=== PATIENT | male | born 1985 | race Caucasian/White ===

== ENCOUNTER 2024-07-06 13:30 | Inpatient (IN) | payer OTHER, SELFPAY ==
[2024-07-06] VITALS (9 sets, daily range): BP systolic 107–137; BP diastolic 61–118; BMI 28.6; BMI 27.3
--- NOTE | 2024-07-06 10:38 | ED.GENMED ---
History of Present Illness
General
Chief Complaint: Heart Rate Problem
Time Seen by Provider: 07/06/24 10:23
History of Present Illness
History of Present Illness:
Patient is a 38-year-old male with history of hypertension substance use presenting to the emergency department in withdrawal. Patient states that 2 days ago he started fentanyl laced with cocaine. He uses about 1-2 bags a day. Last use 3 days
ago. Denies any alcohol use or other drugs. Has never injected. States that he is going through withdrawal. He has been on methadone before. Is not interested in Suboxone initiation at this time. He does note that he has been having a runny
nose lately. Denies any chest pain or breathing. He has nausea secondary to the withdrawal. No abdominal pain. No diarrhea.
Phy Exam
Physical Exam
Physical Exam:
GENERAL: Actively dry heaving, appears in mild distress
HEENT: normocephalic, extraocular movements intact, dry oral mucosa
NECK: normal inspection
RESPIRATORY: no respiratory distress, clear to auscultation bilaterally
CARDIOVASCULAR: Regular rhythm, tachycardic rate
ABDOMEN/: soft, non-distended, non-tender to palpation, no rebound or guarding
EXTREMITIES: non-tender, no edema/swelling
NEUROLOGIC: awake and alert, moves all extremities
SKIN: warm
Course
Orders/Labs/Results
Orders:
Orders
07/06/24 10:28
Ondansetron Injectable [Zofran] 4 mg IV NOW STA
07/06/24 10:29
Electrocardiogram (*1) Urgent
Reason for Study: Tachycardia
EKG- Treatment ONCE
HYDROmorphone [Dilaudid] 1 mg IV NOW STA
Lactated Ringers [Lr] 1,000 ml IV BOLUS
Clinical Opioid Withdrawal Scale (COWS) .PRN
CR Chest - 2 Views Urgent
Comment:
Reason For Exam: cough
07/06/24 10:34
Acetaminophen 1000MG/100Ml [Ofirmev] 1,000 mg in 100 ml IV ONCE
Acetaminophen IV Indication:: ED Narcotic History-ONCE
07/06/24 10:36
Basic Metabolic Panel Urgent
COVID-19 Antigen Urgent
Source: Nasal Swab
Complete Blood Count/With Diff Urgent
Influenza A+B Rapid Molecular Urgent
JACQUIE Source: Nasal Swab
Specimen Description:
Ketorolac [Toradol] 15 mg IV NOW STA
07/06/24 10:47
Trimethobenzamide [Tigan] 200 mg IM NOW STA
07/06/24 11:37
HYDROmorphone [Dilaudid] 1 mg IV NOW STA
07/06/24 12:13
Urinalysis Reflex To Culture Urgent
Date Specimen was Collected: 07/06/24
Time Specimen was Collected: 12:14
Abnormal Lab Results
07/06/24
10:36
WBC 13.0 H 10^3/uL
(4.8-10.8)
Hgb 12.8 L g/dL
(13.0-18.0)
Hct 37.5 L %
(39.0-52.0)
MCV 77.5 L fL
(80.0-94.0)
MCH 26.4 L pg
(27.0-31.0)
Abs Immat Gran (auto) 0.1 H 10^3/uL
(0-0.05)
Absolute Neuts (auto) 11.1 H 10^3/uL
(1.4-6.5)
Absolute Lymphs (auto) 0.7 L 10^3/uL
(1.2-3.4)
Absolute Monos (auto) 1.1 H 10^3/uL
(0.1-0.6)
Neutrophils % 85.8 H %
(42.2-75.2)
Lymphocytes % 5.1 L %
(20.5-51.1)
Chloride 97 L mmol/L
(98-107)
BUN 21 H mg/dl
(9-20)
Glucose 138 H mg/dl
(70-99)
07/06/24 10:36
07/06/24 10:36
Vital Signs
Initial and Last Documented VS:
Initial Vital Signs
Temp Pulse Resp Pulse Ox
101.9 F H 109 18 99
07/06/24 10:09 07/06/24 10:09 07/06/24 10:09 07/06/24 10:09
Last Documented Vital Signs
Temp Pulse Resp Pulse Ox
101.9 F H 102 17 99
07/06/24 10:09 07/06/24 11:04 07/06/24 11:04 07/06/24 11:04
MDM/Problems Addressed
Differential Diagnosis Includes:
Patient is a 38-year-old male with history of substance use disorder presenting to the emergency department in withdrawal. On arrival patient febrile here to one 1.9. He is tachycardic. On exam he is actively going through withdrawal with nausea
tremors yawning rhinorrhea. His COWS is 12. Will initiate Dilaudid and give adjunctive medications. Will give fluids and obtain basic blood work EKG respiratory swabs as well as chest x-ray.
*Critical Care Note
Total Time (30-74mins, 75-104mins- exclusive of procedures): Not Applicable
Update Note
Update Note:
EKG per my interpretation with prolonged QTc. Will hold off on Zofran and give Tigan.
On reevaluation his COWS remain at 12. Will give additional 1 mg IV Dilaudid. Blood work is notable for leukocytosis.. His COVID and flu is negative. Will add on urine. He denies any skin infections or rashes that could be contributing.
Considered endocarditis though less likely as he has no other physical exam findings.
On reevaluation COWS are at 8. He does state that he feels slightly better. Will continue to monitor and give additional Dilaudid. Patient will need admission for further evaluation and monitoring. Urine and chest x-ray pending at this time.
ED Attending Note
-
Portions of this chart may have been created with voice recognition software.� Occasional wrong word or��sound alike� substitutions may have occurred due to the inherent limitations of voice recognition software.
Discharge Plan
Departure
Patient Disposition: Admit
Date of Disposition: 07/06/24
Time of Disposition: 12:14
Presentation/result/management discussed w/ accepting MD/DO: Hospitalist
Discharge Problem:
Opioid withdrawal
Referrals:
[facility] [Family Provider] -
Interventions
Interventions:
*Risk Screen - Suicide Last Done: 07/06/24 10:09
*General Assessment Last Done: 07/06/24 10:09
*Neglect/Abuse Screening Last Done: 07/06/24 10:09
ED- Fall Risk Assessment Last Done: 07/06/24 11:19
*ED COVID-19 Vaccine History Last Done: 07/06/24 10:09
ED- Cardiac Assessment Last Done: 07/06/24 10:09
ED- Pulmonary Assessment Last Done: 07/06/24 10:09
Discharge Date and Time
Print Language: TUVALUAN
[2024-07-06] MEDS: LR 1000 IV (10:44)
[2024-07-06] MEDS: DILAUDID 1 MG IV ×2 (10:44→11:47)
[2024-07-06] MEDS: TORADOL 15 MG IV (10:44)
[2024-07-06] MEDS: OFIRMEV 100 IV (10:45)
[2024-07-06 10:46] LABS: % Basophils 0.1 % (0-2); % Immature Granulocytes 0.4 % (0-0.5); % Lymphocytes 5.1 % (20.5-51.1); % Monocytes 8.6 % (1.7-9.3); % Neutrophils 85.8 % (42.2-75.2); Absolute Immature Granulocytes 0.1 10^3/uL (0-0.05); Absolute Lymphocytes 0.7 10^3/uL (1.2-3.4); Absolute Monocytes 1.1 10^3/uL (0.1-0.6); Absolute Neutrophils 11.1 10^3/uL (1.4-6.5); Hematocrit 37.5 % (39.0-52.0); Hemoglobin 12.8 g/dL (13.0-18.0); Mean Corp Hgb Conc. 34.1 g/dL (33.0-37.0); Mean Corpuscular Hgb 26.4 pg (27.0-31.0); Mean Corpuscular Volume 77.5 fL (80.0-94.0); Mean Platelet Volume 9.8 fL (7.4-10.4); Nucleated Red Blood Cells % 0 % (-); Platelet Count 261 10^3/uL (130-400); Red Blood Cell Count 4.84 10^6/uL (4.70-6.10)
[2024-07-06] MEDS: TIGAN 200 MG IM (10:54)
[2024-07-06 10:56] LABS: Blood Urea Nitrogen 21 mg/dl (9-20); Calcium 9.4 mg/dl (8.4-10.2); Carbon Dioxide 30 mmol/L (22-30); Chloride 97 mmol/L (98-107); Estimated Creatinine Clearance 110 ml/min; Glucose 138 mg/dl (70-99); Potassium 3.5 mmol/L (3.5-5.1); Sodium 142 mmol/L (135-145); eGFR > 60.00
[2024-07-06 11:03] LABS: COVID-19 Antigen Negative (Negative)
--- NOTE | 2024-07-06 12:48 | HPS.HSE ---
Family Physician
-
Family Physician: Facility [facility]
Chief Complaint
-
tremors
History of Present Illness
38-year-old male with history of hypertension substance use presenting to the emergency department in withdrawal. he snorts fentanyl an cocaine. last use was 3 days ago. He uses about 1-2 bags a day. Denies any alcohol use or other drugs. States
that he is going through withdrawal. stated vomiting. he is having JIMENEZ. denied fever. he has chills, tremors. denied abdominal pain,diarrhea. denied dysuria or hematuria.
admitting for further management.
Medical History
Past Medical History
Past Medical History: Reports Other
Additional Past Medical History:
HTN
Past Surgical History: Reports None
Social History
Tobacco: Non-smoker
Alcohol: None
Drug: Cocaine and Other (fentanyl)
Living: [facility]
Family History
Family History: Not pertinent
Allergies / Home Medications
Allergies reflects when Allergies were last updated in [facility].
Home Medications with original date entered in [facility]
Allergy/Medication List:
Allergies
Allergy/AdvReac Type Severity Reaction Status Date / Time
No Known Allergies Allergy Unverified 07/06/24 10:19
Home Medications
acetaminophen 300 mg-codeine 30 mg tablet 2 tab PO TID 07/06/24
clonidine HCl 0.1 mg tablet 0.1 mg PO TID 07/06/24
loperamide 2 mg tablet 2 mg PO TIDPRN PRN diarrhea 07/06/24
ondansetron HCl 4 mg tablet 4 mg PO Q8HPRN PRN nausea 07/06/24
Review of Systems
-
Constitutional: Reports Chills
EENT: Reports No Symptoms
Respiratory: Reports No Symptoms
Cardiac: Reports Palpitations
Abdomen/GI: Reports Vomiting
: Reports No Symptoms
Musculoskeletal: Reports No Symptoms
Skin: Reports No Symptoms
Neurological: Reports No Symptoms
Endocrine: Reports No Symptoms
Hematologic/Lymphatic: Reports No Symptoms
Psych: Reports No Symptoms
Physical Exam
Vital Signs
Vital Signs
Temp Pulse Resp BP Pulse Ox
101.9 F H 114 14 114/83 100
07/06/24 10:09 07/06/24 12:00 07/06/24 12:00 07/06/24 12:00 07/06/24 12:00
Physical Exam
General: Well Developed, Well Nourished and No Apparent Distress
HEENT: NormoCephalic, Moist mucous membranes and Atraumatic
Respiratory: Clear
Cardiac: Tachycardia; No Murmur or Rub
GI: Soft, Non Tender, Non Distended and Normal Bowel Sounds; No Organomegaly
Rectal: Deferred by Provider
Musculoskeletal: No Clubbing, No Cyanosis and No Edema
Skin: No Rash
Neuro: AO x 3 and Nonfocal/grossly intact
Psych: Calm
Laboratory Results
-
07/06/24 10:36
07/06/24 10:36
Data Reviewed
-
Lab Data: Labs Reviewed by me
Impression/Plan
-
# Opioid withdrawal
# Withdrawal as evident by tachycardia, fever
-Protocol initiated
-Fluids continued
# Fever likely from opioid withdrawal
-COVID, flu negative
-UA pending
-Chest x-ray pending
# Leukocytosis likely stress reaction
-WBC 13.0
-ctm
#essential HTN
-clonidine
#DVT prophylaxis
-Lovenox
#CODE status
-full code
[2024-07-06] MEDS: LOVENOX 40 MG SC (17:39)
[2024-07-06] MEDS: SUBUTEX 8 MG SL ×2 (17:40→18:46)
[2024-07-06] MEDS: CATAPRES 0.1 MG PO ×2 (17:40→20:49)
[2024-07-06] MEDS: NSS 1000 IV (18:09)
[2024-07-06 20:17] LABS: Urine Albumin Trace (Neg - Trace); Urine Bilirubin 1+ (Negative); Urine Character Clear (Clear); Urine Color Yellow; Urine Glucose Negative (Negative); Urine Ketone 3+ (Negative); Urine Leukocyte Negative (Negative); Urine Nitrite Negative (Negative); Urine Occult Blood Negative (Negative); Urine Urobilinogen Negative (Neg - 1+)
[2024-07-06 20:36] LABS: Fentanyl, Urine Positive (Negative)
--- NOTE | 2024-07-06 20:51 | W.PN.UPDATE ---
Update Note
Progress Note Update
Attending addendum
Patient seen independently
38-year-old male with history of hypertension, poly-substance use presenting to the emergency department in withdrawal. He uses fentanyl and cocaine. last use was 3 days ago. Denies any alcohol use or other drugs. States that he is going through
withdrawal. He is having JIMENEZ and vomitting. denied fever. he has chills, tremors. denied abdominal pain,diarrhea. denied dysuria or hematuria.
Past Medical History
HTN
Physical Exam
General: Well Developed, Well Nourished and No Apparent Distress
HEENT: NormoCephalic, Moist mucous membranes and Atraumatic
Respiratory: Clear
Cardiac: Tachycardia; No Murmur or Rub
GI: Soft, Non Tender, Non Distended and Normal Bowel Sounds; No Organomegaly
Psych: Calm
Impression/Plan
1. Opioid withdrawal
-opioid WD Protocol initiated
Please see [facility] note for further details on
# Fever likely from opioid withdrawal
# Leukocytosis likely stress reaction
#essential HTN
DVT prophylaxis -Lovenox
CODE status -full code
[2024-07-06] MEDS: ZANAFLEX 2 MG PO (21:00)
[2024-07-06 23:17] LABS: Amphetamines Negative (Negative); Barbiturates Negative (Negative); Benzodiazepines Positive (Negative); Buprenorphine Positive (Negative); Cocaine Positive (Negative); Methadone Positive (Negative); Methamphetamines Positive (Negative); Opiates Positive (Negative); Phencyclidine Negative (Negative)
[2024-07-06 23:18] LABS: Marijuana Negative (Negative); Tricyclic Antidepressants Negative (Negative)
[2024-07-06] MEDS: TYLENOL 650 MG PO (23:40)
[2024-07-07 03:00] VITALS: BP 134/81
[2024-07-07] MEDS: TIGAN 200 MG IM ×3 (03:02→20:05)
[2024-07-07] MEDS: NSS 1000 IV ×3 (03:23→17:59)
[2024-07-07 07:00] VITALS: BP 137/86
[2024-07-07] MEDS: CATAPRES 0.1 MG PO ×3 (07:52→22:51)
[2024-07-07] MEDS: SUBUTEX 16 MG SL (07:53)
[2024-07-07 08:43] LABS: ALT (SGPT) 16 U/L (0-50); AST (SGOT) 33 U/L (17-59); Albumin 4.3 g/dl (3.5-5.0); Alkaline Phosphatase 66 U/L (38-126); Direct Bilirubin 0.3 mg/dl (0.0-0.4); Total Bilirubin 0.9 mg/dl (0.2-1.3); Total Protein 7.6 g/dl (6.3-8.2)
--- NOTE | 2024-07-07 08:45 | W.PN.HOSP.TC ---
Today's Communication/Plan
-
Withdrawal protocol
Assessment / Plan
Assessment / Plan
Physical exam:
General: Well Developed, Well Nourished and No Apparent Distress
HEENT: Normocephalic, Atraumatic and Moist Mucous Membranes
Respiratory: Clear to Auscultation; Negative Wheezes, Rales or Rhonchi
Cardiac: Regular Rhythm and S1/S2
GI: Soft, Nontender and Nondistended
Musculoskeletal: No Clubbing, No Cyanosis and No Edema
Neuro: Awake, Alert and Oriented, no neurological deficit
Psych: Calm
A/P:
# Opioid withdrawal
# Withdrawal as evident by tachycardia, fever, tremors, nausea, vomiting, headache, and other
-Protocol initiated--> continue withdrawal protocol
-Fluids continued--> continue IV fluids today
# Fever likely from opioid withdrawal
-COVID, flu negative
-UA clear
-Chest x-ray no acute chest pathology
-Would obtain blood cultures x2 today but patient reluctant on getting some lab draws today.
# Leukocytosis likely stress reaction
-WBC 13.0--> 10.5
-ctm
#Elevated QTc
Repeat EKG today QTc down to 487
#essential HTN
-clonidine
#DVT prophylaxis
-Lovenox
#CODE status
-full code
Anticipated Discharge: 24 - 48 hours
Subjective/Interval History
-
Date of Service: July 07, 2024
Patient still having some withdrawal symptoms although reports some improvement. Afebrile today
Objective Data
-
Labs:
Laboratory Results
07/07/24
07:40
WBC Pending
Hgb Pending
Hct Pending
Plt Count Pending
Total Bilirubin 0.9
AST 33
ALT 16
Alkaline Phosphatase 66
Vital Signs:
Vital Signs
Temp Pulse Resp BP Pulse Ox
99.4 F 83 18 137/86 97
07/07/24 07:00 07/07/24 07:00 07/07/24 07:00 07/07/24 07:00 07/07/24 07:00
I&O
07/06/24 07/07/24 07/08/24
06:59 06:59 06:59
Intake Total 2930 / 2930
Output Total 350 / 350
Balance 2580 / 2580
[2024-07-07 08:56] LABS: Hematocrit 37.5 % (39.0-52.0); Hemoglobin 12.5 g/dL (13.0-18.0); Mean Corp Hgb Conc. 33.3 g/dL (33.0-37.0); Mean Corpuscular Hgb 25.9 pg (27.0-31.0); Mean Corpuscular Volume 77.8 fL (80.0-94.0); Red Blood Cell Count 4.82 10^6/uL (4.70-6.10); Red Cell Dist. Width 14.2 % (11.5-14.5); White Blood Cell Count 10.5 10^3/uL (4.8-10.8)
[2024-07-07 11:24] VITALS: BP 162/95
[2024-07-07 13:49] LABS: Mean Platelet Volume 11.8 fL (7.4-10.4); Platelet Count 142 10^3/uL (130-400)
--- NOTE | 2024-07-07 14:47 | CM ---
CM reviewed chart, patient from [facility]. Guards seen present in patients room. CM will continue to follow for all discharge planning needs.
Plan; return to [facility] when medically stable.
[facility] report; [phone]
[2024-07-07 15:33] VITALS: BP 121/67
[2024-07-07] MEDS: LOVENOX 40 MG SC (17:59)
[2024-07-07 19:24] VITALS: BP 135/65
[2024-07-07] MEDS: TYLENOL 650 MG PO (20:06)
[2024-07-07 22:55] VITALS: BP 127/86
[2024-07-08] MEDS: TYLENOL 650 MG PO (01:53)
[2024-07-08] MEDS: NSS 1000 IV (02:47)
[2024-07-08 03:09] VITALS: BP 136/69
[2024-07-08 07:26] VITALS: BP 127/81
[2024-07-08] MEDS: CATAPRES 0.1 MG PO (08:10)
[2024-07-08] MEDS: SUBUTEX 16 MG SL (08:10)
[2024-07-08 08:24] LABS: Hemoglobin 12.2 g/dL (13.0-18.0); Mean Corpuscular Hgb 26.1 pg (27.0-31.0); Mean Corpuscular Volume 79.1 fL (80.0-94.0); Red Blood Cell Count 4.68 10^6/uL (4.70-6.10); Red Cell Dist. Width 14.1 % (11.5-14.5); White Blood Cell Count 11.5 10^3/uL (4.8-10.8)
[2024-07-08 08:40] LABS: Blood Urea Nitrogen 20 mg/dl (9-20); Calcium 8.5 mg/dl (8.4-10.2); Carbon Dioxide 27 mmol/L (22-30); Chloride 99 mmol/L (98-107); Estimated Creatinine Clearance > 125 ml/min; Glucose 110 mg/dl (70-99); Potassium 3.4 mmol/L (3.5-5.1); Sodium 138 mmol/L (135-145); eGFR > 60.00
--- NOTE | 2024-07-08 10:34 | W.PN.HOSP.TC ---
Today's Communication/Plan
-
Replete potassium
Check magnesium
Possible discharge later today if he tolerates lunch
Assessment / Plan
Assessment / Plan
Gen-AAOx3, NAD
HEENT-NC, AT, anicteric, clear oral mm
Neck-supple
CV-reg, no M, +S1/S2
Lungs-clear B/L
Abd-soft, NT, ND
Ext-no edema
Musculoskeletal-no cyanosis, clubbing
Skin-warm and dry
Neuro-grossly non-focal
Psych-calm, cooperative
Acute Opioid withdrawal -improving clinically. Tolerated breakfast this morning. Denies nausea currently.
-Protocol initiated--> continue withdrawal protocol
-Fluids continued--> continue IV fluids today
Fever likely from opioid withdrawal
-COVID, flu negative
-UA clear
-Chest x-ray no acute chest pathology
-Patient refused blood cultures over the weekend, they were sent this morning. Does not look toxic.
Hypokalemia -will replete. Check magnesium.
Leukocytosis likely stress reaction
-WBC 13.0--> 10.5
-ctm
Elevated QTc
Repeat EKG today QTc down to 487
Essential HTN
-clonidine
DVT prophylaxis
-Lovenox
Full code
Dispo -possible discharge this afternoon back to [facility] if he tolerates lunch.
32 minutes spent in discharge process.
Anticipated Discharge: Today
Subjective/Interval History
-
Date of Service: July 08, 2024
Patient seen and examined. Denies nausea, tolerated breakfast. No complaints.
Objective Data
-
Labs:
Laboratory Results
07/08/24
07:33
WBC 11.5 H
Hgb 12.2 L
Hct 37.0 L
Plt Count
Sodium 138
Potassium 3.4 L
Chloride 99
Carbon Dioxide 27
BUN 20
Creatinine 0.7
Glucose 110 H
Calcium 8.5
Vital Signs:
Vital Signs
Temp Pulse Resp BP Pulse Ox
98.3 F 74 18 127/81 95
07/08/24 07:26 07/08/24 07:26 07/08/24 07:26 07/08/24 07:26 07/08/24 07:26
I&O
07/07/24 07/08/24 07/09/24
06:59 06:59 06:59
Intake Total 2930 / 2930 5820 / 5820
Output Total 350 / 350 1999 / 1999
Balance 2580 / 2580 3820 / 3820
Review of Systems
-
History Source: Patient
All other systems: Reviewed and negative
--- NOTE | 2024-07-08 10:41 | W.DS.TRANS ---
DC Summary - [employer]
-
Discharge Instructions:
Discharge Diagnosis/Procedures Opioid withdrawal syndrome
Diet Regular
Activity As tolerated
Driving Restrictions As prior to admission
Bathing Restrictions None
Instructions:
Stand-Alone Forms:
Changes to Home Medications: No
Discharge Medications:
DC Medications w/original date entered in [employer]
clonidine HCl 0.1 mg tablet 0.1 mg PO TID 07/06/24
loperamide 2 mg tablet 2 mg PO TIDPRN PRN diarrhea 07/06/24
ondansetron HCl 4 mg tablet 4 mg PO Q8HPRN PRN nausea 07/06/24
buprenorphine HCl 8 mg sublingual tablet 16 mg (2 x 8 mg) sublingual DAILY #0 tabs 07/08/24
polyethylene glycol 3350 17 gram oral powder packet 17 g PO DAILYPRN PRN constipation #0 ea 07/08/24
tizanidine 2 mg tablet 2 mg PO Q6HPRN PRN restlessness,agitation,anxiety #0 tabs 07/08/24
Home Medication Changes
Pending Results: No
--- NOTE | 2024-07-08 10:43 | CM ---
Addendum entered by Deja Muñoz 07/08/24 10:44:
Guards to transport
Original Note:
Chart reviewed and patient to return to [facility] today.
[facility]
Report: [phone]
[2024-07-08] MEDS: KCL 40 MEQ PO (10:55)
[2024-07-08 11:00] VITALS: BP 128/85
[2024-07-08 11:15] LABS: Magnesium 2.2 mg/dl (1.6-2.3)
[2024-07-08] MEDS: NSS IV (11:40)
== END 2024-07-08 13:25 | DRG 897 ==
LOC: 4 WEST ACU 13:30
PROVIDERS: Hospitalist; Registered Nurse; ADMITTING PHYSICIAN Internal Medicine; ATTENDING PHYSICIAN Hospitalist; EMERGENCY PHYSICIAN Student in an Organized Health Care Education/Training Program
DX: F11.23 Opioid dependence with withdrawal (principal); I10 Essential (primary) hypertension; R25.1 Tremor, unspecified; R11.2 Nausea with vomiting, unspecified; R51.9 Headache, unspecified; D72.829 Elevated white blood cell count, unspecified; E87.6 Hypokalemia; Z11.52 Encounter for screening for COVID-19
CPT/HCPCS: 71046; 80048; 80076; 80306; 80307; 81003; 83735; 85025; 85027; 87040; 87070; 87502; 87811; 93005; 96361; 96372; 96374; 96375; 96376; 99285; 99406